=== PATIENT | female | born 1970 | race Asian ===

== ENCOUNTER 2018-05-10 21:08 | Inpatient (IN) | payer BC ==
[~2018-05-10] VITALS: Ht 162.6 cm; Wt 76.7 kg
[2018-05-10 21:20] VITALS: Ht 162.6 cm; Wt 76.7 kg
[2018-05-10 22:04] LABS: CALCIUM 9.2 mg/dL (8.5-10.1); CARBON DIOXIDE 24.9 mmol/L (21-32); CHLORIDE SERUM 97 mmol/L (98-107); CREATININE SERUM 0.5 mg/dL (0.6-1.0); GFR1 > 60 mL/min; GLUCOSE SERUM 158 mg/dL (74-106); POTASSIUM SERUM 3.4 mmol/L (3.5-5.1); SODIUM SERUM 132 mmol/L (136-145)
[2018-05-10 22:09] LABS: ALBUMIN 3.7 g/dL (3.4-5.0); ALKALINE PHOSPHATASE 53 U/L (46-116); ALT/SGPT 43 U/L (14-59); AST/SGOT 22 U/L (15-37); BILIRUBIN TOTAL 0.4 mg/dL (0.20-1.00); TOTAL PROTEIN, SERUM 8.3 g/dL (6.4-8.2)
[2018-05-11 00:46] LABS: TOTAL PROTEIN CSF 28.6 mg/dL (15-45)
[2018-05-11 01:00] LABS: APPEARANCE CSF CLEAR; COLOR CSF COLORLESS; RBC CSF 14 /cumm (0); WBC CSF 2 /cumm (0-5)
[2018-05-11 01:01] LABS: APPEARANCE CSF CLEAR; COLOR CSF COLORLESS; RBC CSF 0 /cumm (0); WBC CSF 0 /cumm (0-5)
[2018-05-11] MEDS ORDERED: PENICILLIN V P500 MG PO (01:19)
[2018-05-11 02:28] LABS: CHOLESTEROL/HDL RATIO 2.4; PHOSPHOROUS 2.1 mg/dL (2.5-4.9)
[2018-05-11 02:37] LABS: T3 TOTAL 0.7 ng/mL
[2018-05-11 02:41] LABS: FREE T4 1.08 ng/dL (0.76-1.46); FREE THYROXINE INDEX 2.4 ug/dL (1.4-4.5); T4(THYROXINE) 7.2 ug/dL (4.7-13.3)
[2018-05-11 02:42] VITALS: BP 152/86
[2018-05-11 07:16] LABS: BASOPHIL % 0.1 % (0-2); PLATELET COUNT 233 x10^3mcL (130-400); RED CELL DISTRIBUTION WIDTH 14.4 % (11.5-14.5)
[2018-05-11 07:48] LABS: CALCIUM 8.7 mg/dL (8.5-10.1); CARBON DIOXIDE 27.1 mmol/L (21-32); CHLORIDE SERUM 102 mmol/L (98-107); CREATININE SERUM 0.5 mg/dL (0.6-1.0); GFR1 > 60 mL/min; GLUCOSE SERUM 117 mg/dL (74-106); MAGNESIUM 2.1 mg/dL (1.8-2.4); PHOSPHOROUS 3.2 mg/dL (2.5-4.9); POTASSIUM SERUM 3.6 mmol/L (3.5-5.1); SODIUM SERUM 136 mmol/L (136-145)
[2018-05-11 10:03] VITALS: BP 135/81
[2018-05-11] MEDS ORDERED: NORCO1 TA2 PO (10:58)
[2018-05-11] MEDS ORDERED: IMITREX50 MG PO (10:59)
[2018-05-11] MEDS ORDERED: ZOFRAN ODT4 MG SL (11:00)
[2018-05-11 11:54] VITALS: BP 135/81
== END 2018-05-11 15:18 | disposition home or self-care (01) | DRG 73 ==
LOC: ED 21:08 → MU 05-11 01:31
PROVIDERS: Specialist; ADMIT General Practice
DX: G90.8 Other disorders of autonomic nervous system (principal); N17.0 Acute kidney failure with tubular necrosis; E87.1 Hypo-osmolality and hyponatremia; Z94.84 Stem cells transplant status; G43.909 Migraine, unspecified, not intractable, without status migrainosus; M32.9 Systemic lupus erythematosus, unspecified; G89.29 Other chronic pain; M50.222 Other cervical disc displacement at C5-C6 level; E87.6 Hypokalemia; J32.9 Chronic sinusitis, unspecified; E87.8 Other disorders of electrolyte and fluid balance, not elsewhere classified; J02.9 Acute pharyngitis, unspecified; E83.39 Other disorders of phosphorus metabolism; I10 Essential (primary) hypertension; Z90.49 Acquired absence of other specified parts of digestive tract; Z23 Encounter for immunization
CPT/HCPCS: 83880; 84439; 87804; 90658; J0780; J1885; J2001; J2270; J2405; J3010; J7030; Q0092